=== PATIENT | female | born 1960 ===

== ENCOUNTER 2021-11-20 18:08 | Emergency (ER) | payer SELFPAY ==
[2021-11-20 18:58] VITALS: BP 110/70
== END 2021-11-20 23:30 | disposition left against medical advice (07) ==
LOC: ED 18:08
DX: F41.9 Anxiety disorder, unspecified (principal); Z53.21 Procedure and treatment not carried out due to patient leaving prior to being seen by health care provider

== ENCOUNTER 2021-11-25 12:07 | Emergency (ER) | payer SELFPAY ==
[2021-11-25] MEDS ORDERED: MECLIZINE 25 MG TAB PO ONE (17:21)
[2021-11-25 17:59] LABS: Hematocrit 34.3 % (30.3-42.9); Hemoglobin 11.5 gm/dl (10.1-14.3); Mean Corpuscular HGB Conc 34 % (30-34); Mean Corpuscular Volume 95 fl (79-97); Platelet Count 175 K/mm3 (140-440); Red Blood Count 3.61 M/mm3 (3.65-5.03); Red Cell Distribution Width 13.5 % (13.2-15.2)
[2021-11-25 18:20] LABS: BUN/Creatinine Ratio 14; Blood Urea Nitrogen 11 mg/dL (7-17); Calcium 9.3 mg/dL (8.4-10.2); Hemolysis Index 2
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
[2021-11-25 19:27] VITALS: BP 129/88
--- NOTE | 2021-11-25 20:17 | Emergency Department Report ---
ED Dizziness HPI - General Chief Complaint: Dizziness Stated Complaint: PASSED OUT Time Seen by Provider: 11/25/21 16:26 Source: patient Mode of arrival: Ambulatory Limitations: No Limitations - History of Present Illness Initial Comments: 60-year-old female presenting to the emergency department with syncope, anxiety, PTSD,. Patient reports she has been experiencing lightheadedness and dizziness secondary to her vertigo, states she was at work this morning about 10 AM when she felt very dizzy and lightheaded, states she passed out, unknown duration. However she recalls passing out, she recalls feeling lightheaded before the incident occurred. Patient reports that whenever she is stressed, anxious or under exertion, that she gets very lightheaded and dizzy. States has been diagnosed with vertigo in the past but not followed up with anyone. She denies chest pain, headache prior to the event. She does report history of similar passing out episode couple of years ago but that was as a result of her dehydration. Her symptoms associated with ringing in her ears, and vomited one episode prior to arrival. She denies chest pain, no shortness of breath, no URI symptoms, no abdominal pain, no diarrhea, she denies recent illness, no fall or injury, she denies injury to her head neck or back. MD Complaint: dizziness, lightheadedness Description: "room spinning", lightheadedness History of Same: Yes History of Trauma: No Severity: moderate Improves With: remaining still Worsens With: movement, position, exertion Associated Symptoms: syncope. denies: chest pain, confusion, seizure, shortness of breath, weakness - Related Data Previous Rx's Medication Instructions Recorded Last Taken Type Meclizine [Antivert] 25 mg PO TID PRN #20 11/25/21 Unknown Rx Ondansetron [Zofran Odt] 4 mg PO Q8HR PRN #20 tab.rapdis 11/25/21 Unknown Rx Allergies Allergy/AdvReac Type Severity Reaction Status Date / Time No Known Allergies Allergy Unverified 11/25/21 13:00 ED Review of Systems ROS: Stated complaint: PASSED OUT Other details as noted in HPI Constitutional: see HPI ENT: as per HPI Respiratory: denies: cough, shortness of breath Cardiovascular: denies: chest pain, palpitations Endocrine: denies: intolerance to cold, intolerance to heat Gastrointestinal: nausea, vomiting. denies: abdominal pain, diarrhea Genitourinary: denies: frequency Musculoskeletal: denies: back pain, joint swelling, arthralgia, myalgia Neurological: headache, abnormal gait. denies: numbness, paresthesias, confusion Psychiatric: anxiety. denies: depression Hematological/Lymphatic: denies: easy bleeding, easy bruising ED Past Medical Hx - Past Medical History Previous Medical History?: Yes Hx of Cancer: Yes (OVARIAN) Additional medical history: PTSD, anxiety, vertigo - Social History Smoking Status: Never Smoker Substance Use Type: Alcohol - Medications Home Medications: Home Medications Medication Instructions Recorded Confirmed Last Taken Type Meclizine [Antivert] 25 mg PO TID PRN #20 11/25/21 Unknown Rx Ondansetron [Zofran Odt] 4 mg PO Q8HR PRN #20 tab.rapdis 11/25/21 Unknown Rx ED Physical Exam - General Limitations: No Limitations General appearance: alert, in no apparent distress, other (Patient is orthost atic, attempted getting out of bed to do static vital signs, patient failed reports feeling dizzy and assisted back to the bed.) - Head Head exam: Present: atraumatic, normocephalic - Eye Eye exam: Present: normal appearance, PERRL Pupils: Present: normal accommodation - ENT ENT exam: Present: normal exam, normal orophraynx - Neck Neck exam: Present: normal inspection. Absent: tenderness - Respiratory Respiratory exam: Present: normal lung sounds bilaterally - Cardiovascular Cardiovascular Exam: Present: regular rate, normal rhythm - GI/Abdominal GI/Abdominal exam: Present: soft. Absent: distended, tenderness - Extremities Exam Extremities exam: Present: normal inspection, full ROM - Back Exam Back exam: Present: normal inspection, full ROM - Neurological Exam Neurological exam: Present: alert, oriented X3, CN II-XII intact, reflexes normal. Absent: normal gait, abnormal gait, motor sensory deficit - Psychiatric Psychiatric exam: Present: normal affect, normal mood - Skin Skin exam: Present: warm, dry, normal color. Absent: abrasion, ecchymosis ED Course Vital Signs 11/25/21 11/25/21 11/25/21 12:59 17:02 19:26 Temperature 98.0 F 97.5 F L Pulse Rate 90 80 98 H Respiratory 18 18 13 Rate Blood Pressure 109/83 134/86 Blood Pressure 134/86 129/88 [Left] O2 Sat by Pulse 100 97 97 Oximetry ED Medical Decision Making - Lab Data Result diagrams: 11/25/21 17:48 11/25/21 17:48 - EKG Data -: EKG Interpreted by Me EKG shows normal: sinus rhythm Rate: normal - EKG Data When compared to previous EKG there are: no significant change (Normal sinus rhythm at 69, normal interval. Normal rate) - Medical Decision Making [id number] female presenting to the emergency department with syncope, anxiety, PTSD,. Patient reports she has been experiencing lightheadedness and dizziness secondary to her vertigo, states she was at work this morning about 10 AM when she felt very dizzy and lightheaded, states she passed out, unknown duration. However she recalls passing out, she recalls feeling lightheaded before the incident occurred. Patient reports that whenever she is stressed, anxious or under exertion, that she gets very lightheaded and dizzy. States has been diagnosed with vertigo in the past but not followed up with anyone. She denies chest pain, headache prior to the event. She does report history of similar passing out episode couple of years ago but that was as a result of her dehydration. Her symptoms associated with ringing in her ears, and vomited one episode prior to arrival. She denies chest pain, no shortness of breath, no URI symptoms, no abdominal pain, no diarrhea, she denies recent illness, no fall or injury, she denies injury to her head neck or back. Differential diagnosis includes TIA, CVA, vertigo, Mnire's disease, dehydration, orthostatic hypotension, mass, space-occupying lesion, bleed Upon reevaluation marked improvement of her symptoms, patient is able to ambulate steadily to the bathroom, she tolerated oral intake without vomiting, her labs are all reassuring no electrolyte abnormality, her EKG is nonischemic. However patient declined to wait for further work-up including a troponin urinalysis. She verbalized understanding of everything discussed including follow-up for her vertigo and dizzy spells which appears to be triggered on the stress/work Patient remained stable nontoxic-appearing, afebrile, ambulating steadily without assistance. Gone over ED findings with patient as well as plan for follow-up including medication use with patient and position changes, hydration,. Also discussed return precautions with patient, all questions and concerns addressed. Patient is stable to be discharged follow-up outpatient. Audio voice dictation device used, hence the chart might contain some dictation errors, mispronunciations, wrong spelling and wrong verbiage. Critical care attestation.: If time is entered above; I have spent that time in minutes in the direct care of this critically ill patient, excluding procedure time. ED Disposition Clinical Impression: Orthostatic dizziness, Vertigo Disposition: 01 HOME / SELF CARE / HOMELESS Is pt being admited?: No Does the pt Need Aspirin: No Condition: Stable Instructions: Dizziness Prescriptions: Meclizine [Antivert] 25 mg PO TID PRN #20 PRN Reason: Vertigo Ondansetron [Zofran Odt] 4 mg PO Q8HR PRN #20 tab.rapdis PRN Reason: Nausea Referrals: PRIMARY CARE, [Primary Care Provider] - 3-5 Days [facility] [Provider Group] - 3-5 Days
--- NOTE | 2021-11-26 10:33 | Electrocardiograph Report ---
[facility] Test Date: 2021-11-25 Test Time: 20:23:39 Pat Name: SVITLANA MURILLO Department: Room: Gender: F [employer] Dispatcher: [id number] : [id number] Requested By: RIAN CLARKE Order Number: [id number] Reading MD: Guille Perez Measurements Intervals [place] Rate: 69 P: 59 WA: 152 QRS: -8 QRSD: 111 T: 65 QT: 421 QTc: 451 Interpretive Statements Sinus rhythm No previous ECG available for comparison Electronically Signed On 11-26-2021 10:32:59 EDT by Guille Perez
== END 2021-11-25 21:05 | disposition home or self-care (01) ==
LOC: ED 12:07
DX: I95.1 Orthostatic hypotension (principal); R42 Dizziness and giddiness; F10.20 Alcohol dependence, uncomplicated
CPT/HCPCS: 36415; 70450; 80048; 85027; 93005; 99284